=== PATIENT | female | born 1955 | race Caucasian/White ===

== ENCOUNTER 2016-05-02 10:06 | Outpatient (CLI) | payer OTHER | END 2016-05-02 10:07 | disposition home or self-care (01) | DX: Z12.31 Encounter for screening mammogram for malignant neoplasm of breast (principal) ==

== ENCOUNTER 2016-09-19 09:31 | Outpatient (CLI) | payer OTHER ==
[2016-09-19 09:57] LABS: HCT - HEMATOCRIT 39.6 % (37.0-47.0); HGB - HEMOGLOBIN 13.2 g/dL (12.0-16.0); MEAN CORPUSCULAR HEMOGLOBIN 29.9 pg (27.0-31.0); MEAN CORPUSCULAR HGB CONC 33.4 g/dL (32.0-36.0); MEAN CORPUSCULAR VOLUME 89.7 fL (81.0-99.0); MEAN PLATELET VOLUME 7.6 fL (7.9-10.8); RED BLOOD COUNT 4.42 10^6/uL (4.20-5.40); WHITE BLOOD COUNT 4.3 x10^3/uL (4.8-10.8)
[2016-09-19 10:22] LABS: ALBUMIN/GLOBULIN RATIO 1.5 (1.0-2.2); BILIRUBIN,TOTAL 0.6 mg/dL (0.2-1.0); CALCIUM 9.5 mg/dL (8.5-10.3); CREATININE 0.7 mg/dL (0.4-1.0); POTASSIUM 4.2 mmol/L (3.5-5.0); TOTAL PROTEIN 7.6 g/dL (6.7-8.2)
== END 2016-09-19 09:32 | disposition home or self-care (01) ==
LOC: LAB 09:31
PROVIDERS: ATTEND Internal Medicine
DX: R10.9 Unspecified abdominal pain (principal); M13.89 Other specified arthritis, multiple sites; Z77.21 Contact with and (suspected) exposure to potentially hazardous body fluids; Z79.899 Other long term (current) drug therapy
CPT/HCPCS: 36415; 80053; 86803; 87389

== ENCOUNTER 2016-09-27 08:13 | Outpatient (CLI) | payer OTHER ==
--- NOTE | 2016-09-27 12:05 | DEXA Report ---
DEXA SCAN: 09/27/2016 CLINICAL INDICATION: Postmenopausal. TECHNIQUE: Dual energy x-ray absorptiometry (DXA) was performed on a [employer] system. Regions measured are the AP spine, femoral neck, and, if needed, forearm. COMPARISON: None. In accordance with the International Society for Clinical Densitometry (ISCD) guidelines, data from previous exams may be reanalyzed using current recommendations and techniques. This is done to allow a more accurate basis for comparison with the current study. FINDINGS: The data for the lumbar spine is as follows: REGION BMD (g/cm/cm) T-SCORE Z-SCORE L1 0.645 -4.0 -2.3 L2 0.694 -4.2 -2.4 L3 0.750 -3.7 -2.0 L4 0.813 -3.2 -1.5 TOTAL 0.731 -3.7 -2.0 NOTE: All evaluable vertebrae are used for classification. The data for the hip is as follows: REGION BMD (g/cm/cm) T-SCORE Z-SCORE Neck 0.647 -2.8 -1.2 TOTAL 0.715 -2.3 -1.0 NOTE: The femoral neck or total proximal femur, whichever is lowest, is used for classification. IMPRESSION: THE WHO CLASSIFICATION BASED ON THE INTERNATIONAL REFERENCE STANDARD IS OSTEOPOROSIS. THE FRACTURE RISK IS HIGH. RECOMMENDATION: Patients with diagnosis of osteoporosis or osteopenia should have regular bone mineral density assessment. For those eligible for Medicare, routine testing is allowed once every 2 years. Testing frequency can be increased for patients who have rapidly progressing disease or for those who are receiving medical therapy to restore bone mass. COMMENT: World Health Organization (WHO) definitions for osteoporosis and osteopenia: NORMAL BMD: T-score at -1.0 or higher, fracture risk is low. OSTEOPENIA BMD: T-score between -1.0 and -2.5, fracture risk is increased. OSTEOPOROSIS BMD: T-score at -2.5 or lower, fracture risk high. National Osteoporosis Foundation recommends: 1. Obtain adequate dietary calcium (at least 1200 mg per day) and vitamin D (400 -800 international units per day). 2. Participate, as appropriate, in regular weightbearing and muscle- strengthening exercise. 3. Avoid tobacco use and reduce alcohol and caffeine intake. 4. For more detailed information see the website at www.NOF.org. MTDD
--- NOTE | 2016-09-27 13:28 | Ultrasound Report ---
ABDOMINAL ULTRASOUND: 09/27/2016 CLINICAL INDICATION: Pain. TECHNIQUE: Real-time scanning was performed with [employer] representative static images obtained. FINDINGS: The liver measures 13 cm. Hepatic echotexture is normal. No intrahepatic biliary dilatat ion or focal parenchymal lesion is seen. The common bile duct measures 3 mm. Multiple mobile gallst ones are noted in an otherwise unremarkable gallbladder. The pancreas is unremarkable. The right ki dney measures 11.8 cm, and is unremarkable. The left kidney measures 10.5 cm, and demonstrates a 1-c m cortical cyst. No hydronephrosis or solid renal lesion is seen. The spleen measures 7.4 cm, and d emonstrates normal echotexture. The abdominal aorta is normal in caliber. The inferior vena cava is unremarkable. No free fluid is present. IMPRESSION: CHOLELITHIASIS, WITHOUT EVIDENCE OF ACUTE CHOLECYSTITIS OR BILIARY OBSTRUCTION. JOB #: [id number] EXT JOB #:[id number]
== END 2016-09-27 08:14 | disposition home or self-care (01) ==
LOC: DI 08:13
PROVIDERS: ATTEND Internal Medicine
DX: M81.0 Age-related osteoporosis without current pathological fracture (principal); K80.20 Calculus of gallbladder without cholecystitis without obstruction
CPT/HCPCS: 76700; 77080

== ENCOUNTER 2018-06-18 09:27 | Outpatient (CLI) | payer OTHER ==
--- NOTE | 2018-06-18 11:48 | XRAY Report ---
Reason: ACUTE BRONCHITIS, UNSPECIFIED Procedure Date: 06/18/2018 Accession Number: [id number] / [id number] Procedure: XRN - Chest 2 View X-Ray CPT Code: 70626 FULL RESULT: EXAM: CHEST RADIOGRAPHY EXAM DATE: 06/18/2018 09:55 AM. CLINICAL HISTORY: Acute bronchitis, unspecified. Patient has been unwell on and off since March 2018. COMPARISON: None. TECHNIQUE: 2 views. FINDINGS: Lungs/Pleura: No focal opacities evident. No pleural effusion. No pneumothorax. Normal volumes. Mediastinum: Heart and mediastinal contours are unremarkable. Other: Mild degenerative erosion tip of the right clavicle. IMPRESSION: Normal 2-view chest radiography. RADIA
== END 2018-06-18 09:28 | disposition home or self-care (01) ==
LOC: DI.N 09:27
PROVIDERS: ATTEND Family Medicine
DX: J20.9 Acute bronchitis, unspecified (principal)
CPT/HCPCS: 71046

== ENCOUNTER 2018-11-06 08:36 | Outpatient (CLI) | payer OTHER ==
--- NOTE | 2018-11-07 09:13 | MRI Report ---
Reason: PAIN IN LEFT KNEE Procedure Date: 11/06/2018 Accession Number: [id number] / [id number] Procedure: MRI - Knee LT W/O CPT Code: FULL RESULT: EXAM: LEFT KNEE MRI WITHOUT CONTRAST EXAM DATE: 11/06/2018 09:40 AM. CLINICAL HISTORY: PAIN IN LEFT KNEE. COMPARISON: None. TECHNIQUE: Multiplanar, multisequence T1-weighted and fluid-sensitive sequences of the knee without contrast. Other: None. FINDINGS: Bones: No fractures or subluxations. No marrow edema. No bone lesions. Articular Cartilage: Small foci of subchondral edema at the patella with overlying shallow partial-thickness cartilage loss and presumed superimposed full-thickness cartilage fissuring. Shallow partial thickness cartilage loss of the trochlea without subchondral edema. Medial compartment articular cartilage is intact. Shallow partial thickness cartilage loss at the posterior lateral tibial plateau without subchondral edema. Medial Meniscus: The medial meniscus is intact. Lateral Meniscus: Fraying of the posterior root of the lateral meniscus without discrete tear. Cruciate Ligaments: The anterior and posterior cruciate ligaments are intact. Collateral Ligaments: The medial collateral and lateral collateral ligamentous structures are intact. Tendons: The quadriceps, patellar, semimembranosus, and popliteus tendons are unremarkable. Musculature: No edema or fatty atrophy. Other: No effusion. Small popliteal cyst projects between the medial head gastrocnemius and semimembranosus tendons. No loose bodies. The medial and lateral retinacula are intact. The subcutaneous tissues and fat pads are unremarkable. IMPRESSION: 1. Mild patellofemoral osteoarthritis, with shallow partial-thickness cartilage loss and small foci of subchondral edema at the patella. 2. Fraying of the posterior root of the lateral meniscus without discrete tear. 3. Intact cruciate ligaments, collateral ligaments, and medial meniscus. RADIA
== END 2018-11-06 08:37 | disposition home or self-care (01) ==
LOC: DI 08:36
PROVIDERS: ATTEND Internal Medicine
DX: M17.12 Unilateral primary osteoarthritis, left knee (principal)

== ENCOUNTER 2018-11-11 08:00 | Outpatient (CLI) | payer OTHER ==
[2018-11-11 19:41] LABS: ALBUMIN 4.1 g/dL (3.2-5.5); BILIRUBIN,DIRECT 0.1 mg/dL (0.1-0.5); BILIRUBIN,TOTAL 0.7 mg/dL (0.2-1.0); TOTAL PROTEIN 6.9 g/dL (6.7-8.2)
== END 2018-11-11 23:59 | disposition home or self-care (01) ==
LOC: LAB.N 08:00
PROVIDERS: ATTEND Internal Medicine
DX: E78.5 Hyperlipidemia, unspecified (principal)
CPT/HCPCS: 36415; 80076

== ENCOUNTER 2020-08-01 10:19 | Outpatient (CLI) | payer MEDICARE, OTHER ==
--- NOTE | 2020-08-01 18:54 | Ultrasound Report ---
PROCEDURE: Head or Neck Soft Tissue INDICATIONS: HYPOTHYROIDISM TECHNIQUE: Real time scanning was performed of the neck region of interest, with image documentation . COMPARISON: None. FINDINGS: No soft tissue neck abnormality seen bilaterally IMPRESSION: PROCEDURE: Head or Neck Soft Tissue INDICATIONS: HYPOTHYROIDISM TECHNIQUE: Real-time scanning was performed of the thyroid gland, with image documentation. COMPARISON: None. FINDINGS: Right: PROCEDURE: Head or Neck Soft Tissue INDICATIONS: HYPOTHYROIDISM TECHNIQUE: Real-time scanning was performed of the thyroid gland, with image documentation. COMPARISON: None FINDINGS: Right: Thyroid lobe measures 4.0 x 1 0.0, 1.0 cm, and is homogeneous in echotexture. 4 mm solid hype rechoic irregular nodule is present. Left: Thyroid lobe measures 4.0 x 1.0 x 1.3 cm, and is homogenous in echotexture. There are 3 morph ologically normal-appearing lymph nodes largest measuring up to 6 mm. Isthmus: 1.4 mm thick. Impression: 1. 4 mm nonsuspicious right thyroid nodule. Given the small size, no follow-up is warranted. 2. Morphologically normal-appearing left neck lymph nodes corresponding to the palpable abnormalities . Reviewed by: DALTON Sparrow on 08/01/2020 6:53 PM PDT Approved by: Navya Sifuentes MD on 08/01/2020 6:53 PM PDT Station ID: [id number]
== END 2020-08-01 10:20 | disposition home or self-care (01) ==
LOC: DI 10:19
PROVIDERS: ATTEND Internal Medicine
DX: E03.9 Hypothyroidism, unspecified (principal)

== ENCOUNTER 2020-08-02 08:30 | Outpatient (CLI) | payer MEDICARE, OTHER ==
[2020-08-02 09:15] LABS: THYROID STIMULATING HORMONE 1.4 uIU/mL (0.34-5.60)
[2020-08-02 09:18] LABS: FREE T4 (FREE THYROXINE) 0.77 ng/dL (0.58-1.64)
== END 2020-08-02 08:31 | disposition home or self-care (01) ==
LOC: LAB 08:30
PROVIDERS: ATTEND Internal Medicine
DX: E03.9 Hypothyroidism, unspecified (principal); E06.9 Thyroiditis, unspecified
CPT/HCPCS: 36415; 84439; 84443; 86376